=== PATIENT | female | born 1965 | race Caucasian/White ===

== ENCOUNTER → 2018-11-05 13:40 | Outpatient (CLI) | payer OTHER, SELFPAY ==
--- NOTE | 2018-11-05 13:43 | DI.RAD.S_ITS ---
PROCEDURE: XR LUMBAR SPINE 2-3V INDICATIONS: left SI joint pain TECHNIQUE: 3 views of the lumbar spine were acquired. COMPARISON: [facility], CT, ABD/PELVIS W/CON (PNL), 09/09/2011, 9:58. MR, LUMBAR SPINE W/O CONTRAST, 09/22/2014, 7:40. [facility] [place], CR, SPINE LUMB 6+VW, 11/30/2015, 9:21. FINDINGS: Bones: 5 dlr-hvf-devqtih vertebrae are present. There is grade 1 anterolisthesis of L4 on L5, trace retrolisthesis of L1 on L2-L2 on L3, L3 on L4. Moderate to severe disc space narrowing is present at L4-5, L5-S1. Severe foraminal narrowing is present at L5-S1. No vertebral body compression fractures. No suspicious bony lesions. SI joints are narrowed bilaterally. Soft tissues: Overlying bowel gas pattern is normal. No suspicious soft tissue calcifications. IMPRESSION: Degenerative changes most notable at L5-S1. Grade one anterolisthesis of L4 on L5. Dictated by: Francia Solano M.D. on 11/05/2018 at 16:17 Approved by: Francia Solano M.D. on 11/05/2018 at 16:21
--- NOTE | 2018-11-05 13:43 | DI.RAD.S_ITS ---
PROCEDURE: XR PELVIS 1-2V INDICATIONS: left SI joint pain TECHNIQUE: Single view(s) of the pelvis acquired. COMPARISON: None. FINDINGS: Bones: No fractures or dislocations. No suspicious bony lesions. Lower lumbar spondylosis. Mild bilateral hip degenerative spurring and sclerosis. Degenerative sclerosis and spurring of sacroiliac joints appears bilaterally symmetric Soft tissues: Visualized bowel gas pattern is normal. No suspicious soft tissue calcifications. IMPRESSION: Scattered degenerative changes as above. Dictated by: Oseas Carter M.D. on 11/05/2018 at 16:44 Approved by: Oseas Carter M.D. on 11/05/2018 at 16:45
== END ==
PROVIDERS: PCP Family Medicine; Visit Provider Registered Nurse
DX: M53.3 Sacrococcygeal disorders, not elsewhere classified (principal); M47.817 Spondylosis without myelopathy or radiculopathy, lumbosacral region; M43.16 Spondylolisthesis, lumbar region
CPT/HCPCS: 72100; 72170

== ENCOUNTER → 2018-11-17 06:20 | Outpatient (CLI) | payer OTHER, SELFPAY ==
--- NOTE | 2018-11-17 06:22 | DI.MRI.S_ITS ---
PROCEDURE: MR LUMBAR SPINE WO CON INDICATIONS: Lumbosacral spondylosis fall from ladder TECHNIQUE: Noncontrast sagittal T1 spin echo and T2 fast echo, sagittal STIR, axial T1 and T2 fast spin echo through the lumbar spine. In cases with scoliosis, additional coronal T2 fast spin echo may be performed. COMPARISON: None. FINDINGS: Image quality: Excellent. Alignment and Curvature: There is grade 1 anterolisthesis of L4 and L5. Bone Marrow: Marrow is of normal overall signal. No acute vertebral body compression fractures. Spinal Cord: Conus medullaris terminates at the L1 to level. Visualized cord demonstrates normal signal and size. Paraspinous Soft Tissues: No paravertebral masses. L1-L2: Normal appearance. L2-L3: Mild diffuse disc bulge and bilateral facet arthrosis is seen. Mild central canal stenosis and mild to moderate right-sided neuroforaminal narrowing is seen. L3-L4: Diffuse disc bulge and bilateral facet arthrosis is noted with mild central canal stenosis and jbds-hj-hiarozaf bilateral neural foramina narrowing. L4-L5: There is suggestion of prior laminectomy at this level with no significant canal stenosis. Decreased intervertebral disc space and degenerative endplate changes are seen. A broad-based disc bulge and bilateral facet arthrosis is noted with moderate to severe bilateral neuroforaminal narrowing more prominent on the left side. There is compression of bilateral L4 nerve roots. L5-S1: There is posterior decompression with no significant canal stenosis or neural foramina narrowing seen. IMPRESSION: #1. Patient is status post laminectomy at L4-5 and L5-S1 levels. No significant canal stenosis is seen. Bilateral neural foramina narrowing at L4-5 level is seen as above. #2. Grade one anterolisthesis of L4 and L5. No marrow edema. No acute compression fracture. #3. Degenerative disc bulge and bilateral facet arthrosis at L2-3 and L3-4 levels causing mild central canal stenosis and bilateral neural foramina narrowing as above. Dictated by: Fer Montes De Oca M.D. on 11/17/2018 at 14:07 Approved by: Fer Montes De Oca M.D. on 11/17/2018 at 14:23
== END ==
PROVIDERS: PCP Family Medicine; Visit Provider Physical Medicine & Rehabilitation
DX: M47.26 Other spondylosis with radiculopathy, lumbar region (principal); M43.16 Spondylolisthesis, lumbar region; M51.16 Intervertebral disc disorders with radiculopathy, lumbar region; M48.061 Spinal stenosis, lumbar region without neurogenic claudication; M53.3 Sacrococcygeal disorders, not elsewhere classified
CPT/HCPCS: 72148

== ENCOUNTER 2018-12-21 07:51 | Outpatient (CLI) | payer OTHER, SELFPAY ==
[2018-12-21] VITALS (8 sets, daily range): BP systolic 130–163; BP diastolic 78–98; PULSE 67–71; RESP 16; TEMP 36.1; O2SAT 95–100
--- NOTE | 2018-12-21 07:54 | DI.RAD.S_ITS ---
PROCEDURE: PAIN SI JOINT INJECTION INDICATIONS: SACROCOCCYGEAL DISORDER FINDINGS: Fluoroscopic spot filming was performed to verify placement of spinal needles at the left sacroiliac joint, as labeled on the films. Appropriate location(s) of the needle tip(s) was confirmed by injection of iodinated contrast. Dictated by: Oseas Carter M.D. on 12/21/2018 at 13:40 Approved by: Oseas Carter M.D. on 12/21/2018 at 13:40
[2018-12-21] MEDS: MIDAZOLAM 5 MG/5 ML VIAL IV (09:39)
[2018-12-21] MEDS: BUPIVACAINE 0.5% (PF) VIAL 2 ML INJ (09:44)
[2018-12-21] MEDS: IOPAMIDOL 15 ML VIAL 3 ML INJ (09:44)
[2018-12-21] MEDS: BETAMETHASONE 30 MG/5 ML MDV 12 MG INJ (09:44)
--- NOTE | 2018-12-21 09:46 | PC.NURSE ---
ASSISTING PT OFF TABLE AND TRANSPORTING TO POST PROC AREA IN STABLE CONDITION
--- NOTE | 2018-12-21 09:51 | P.PCN_ITS ---
Procedures Date/Time Date of procedure: 12/21/18 Time of procedure: 09:50 General Procedure description: PREOP Dx: Sacroiliac joint pain/DJD POST OP DX: Sacroiliac Joint Pain/DJD Procedures: Fluoroscopic guided contrast controlled left sacroiliac joint injection Physician: Arnaud Pike D.O. Indications: Estrella is referred by for treatment of left sacroiliac joint DJD Description of procedure Fluoroscopic guided, contrast controlled left sacroiliac joint injection Following review of allergies and review of potential side effects and complications, including, but not necessarily limited to, infection, allergic reaction, local tissue breakdown, temporary as well as permanent nerve injury, paralysis, stroke and possible , the patient indicated that they understood and agreed to proceed. An informed consent was signed by the patient, witnessed by a nurse, and placed in the patient's chart. Additionally, other treatment options including modalities, medications, and physical therapy were reviewed with the patient. After review of previous anaesthesic history and IV conscious sedation the patient was deemed safe to proceed with todays procedure with IV conscious sedation as ASA class II designation. Safety time-out was performed to confirm patient ID, procedure to be performed and site of procedure. IV sedation was accomplished with a combination of 2mg of Versed administered by the RN after DO order, titrated to patient comfort during the course of the procedure while the patient remained responsive to all verbal commands. In the prone position following sterile prep and drape of the pelvic region, the hyper lucency on in the inferior aspect of the left sacroiliac joint was identified fluoroscopically the skin was anesthetized be a 25 gauge 1 eventual with approximately 2 cc of 1% lidocaine solution. At this point, a 22 gauge 3 in spinal needle was atraumatically introduced and advanced under fluoroscopic guidance into the inferior aspect of the left sacroiliac joint. Following ne gative aspiration, approximately 0.3 cc of Isovue-300 was injected confirming intra-articular placement without vascular uptake. Radiographic data, including multiple fluoroscopic views of the pelvis, reveals a spinal needle in the left sacroiliac joint hyper lucent zone. Subsequent view show flow contrast tear superiorly and inferiorly within the joint capsule without vascular intrathecal uptake. At this point a total of 1cc or 0 8 of 0.5% Marcaine was combined with 1cc of 6mg of betamethasone was injected without incident. The patient tolerated the procedure well without signs or symptoms of complications prior to transfer to the recovery area for further monitoring. The patient was then transferred to the recovery area with a bur observed for an appropriate time after the injection. The patient reverted a vas score of 7 prior to the procedure and postprocedure vas of 1. Total fluoroscopy time: 22.7 sec Total conscious sedation time: 24 min Postop instructions The patient was provided with a pain like to continue to record the patient's response to the target specific procedure prior to the patient's follow-up visit with the referring physician. Additionally, specific post injection care instructions and a contact number to our office were provided if concerns arise regarding the possible complications associated with procedure are suspected. Arnaud Pike D.O. Complications: none
--- NOTE | 2018-12-21 09:52 | PC.NURSE ---
Pt returned from procedure via wheelchair awake and alert, able to transfer self from w/c to chair with standby assist. Resumed monitoring from Jennifer CHOWDARY.
== END 2018-12-21 10:26 ==
LOC: RAD 07:53
PROVIDERS: PCP Family Medicine; Visit Provider Physical Medicine & Rehabilitation
DX: M53.3 Sacrococcygeal disorders, not elsewhere classified (principal); G89.29 Other chronic pain
CPT/HCPCS: 27096; 99152; J0702; J2250; J3010

== ENCOUNTER 2019-03-17 07:44 | Outpatient (CLI) | payer OTHER, SELFPAY ==
[2019-03-17] VITALS (9 sets, daily range): BP systolic 104–153; BP diastolic 58–79; PULSE 62–88; RESP 16–18; TEMP 36.1; O2SAT 94–100
--- NOTE | 2019-03-17 07:45 | DI.RAD.S_ITS ---
PROCEDURE: PAIN L/S TRANSFORAMINAL INJECT INDICATIONS: SPONDYLOSIS FINDINGS: Fluoroscopic spot filming was performed to verify placement of spinal needles at the L4-L5 level(s), as labeled on the films. Appropriate location(s) of the needle tip(s) was confirmed by injection of iodinated contrast. IMPRESSION: Fluoroscopy for pain management. Dictated by: Gopi Cuello M.D. on 03/17/2019 at 10:46 Approved by: Gopi Cuello M.D. on 03/17/2019 at 10:46
[2019-03-17] MEDS: MIDAZOLAM 5 MG/5 ML VIAL IV (09:09)
[2019-03-17] MEDS: IOPAMIDOL 15 ML VIAL 3 ML INJ (09:16)
[2019-03-17] MEDS: DEXAMETHASONE 10 MG/ML VIAL 20 MG INJ (09:17)
[2019-03-17] MEDS: BETAMETHASONE 30 MG/5 ML MDV 6 MG INJ (09:17)
[2019-03-17] MEDS: BUPIVACAINE 0.25% (PF) VIAL 2 ML INJ (09:17)
--- NOTE | 2019-03-17 09:22 | PC.NURSE ---
ASSISTING PT OFF TABLE AND TRANSPORTING TO POST PROC AREA IN STABLE CONDITION.
--- NOTE | 2019-03-17 09:26 | P.PCN_ITS ---
Procedures Date/Time Date of procedure: 03/17/19 Time of procedure: 09:26 General Procedure description: PREOP DIAGNOSIS 1. FORMAINAL STENOSIS WITH LE SYMPTOMS POST OP DIAGNOSIS 1. FORMAINAL STENOSIS WITH LE SYMPTOMS PROCEDURES 1. FLUOROSCOPICALLY GUIDED CONTRAST CONTROLLED TRANSFORAMINAL EPIDURAL STEROID INJECTION - LEFT L4/5 PHYSICIAN: Arnaud Pike DO INDICATIONS: Estrella is referred by for treatment of Foraminal Stenosis with Left LE Symptoms FINDINGS Foraminal Nerve Root Compression secondary to disc disease and facet hypertrophy DESCRIPTION OF PROCEDURE: Following review of allergy and review of potential side effects and complications, including, but not necessarily limited to, infection, allergic reaction, local tissue breakdown, stroke, temporary or permanent nerve injury, paralysis, and possible , the patient indicated that the patient understood and agreed to proceed. An informed consent document was signed by the patient, witnessed by a nurse, and placed in the patient's chart. Additionally, other treatment options including medications, modalities, and physical therapy were reviewed with the patient. After review of previous anaesthesic history and IV conscious sedation the beth ent was deemed safe to proceed with todays procedure with IV conscious sedation as ASA class II designation. Safety time-out was performed to confirm patient ID, procedure to be performed and site of procedure. IV sedation was accomplished with a combination of 2mg of Versed administered by the RN after DO order, titrated to patient comfort during the course of the procedure while the patient remained responsive to all verbal commands In the prone position following sterile prep and drape of the lumbar region, the left L4/5 posterior neuroforamen was identified fluoroscopically. The skin was anesthetized via a 25-gauge 1.5-inch needle with 1% lidocaine solution. At this point, a 25-gauge 3.5-inch spinal needle was atraumatically introduced and advanced under fluoroscopic guidance through the posterior left L4/5 neuroforamen to approximately the anterior aspect of the canal. Depth was confirmed on lateral view. Following negative aspiration, injection of approximately 1.5 cc of Isovue 200 under live fluoroscopy in the AP view confirmed excellent flow along the nerve root, into the epidural space without vascular or intrathecal uptake observed Radiological data, including multiple fluoroscopic views of the lumbosacral spine, reveal a spinal needle at the left L4/5 posterior neuroforamen. Subsequent views show flow of contrast material flowing superiorly and inferiorly along the nerve root confirming epidural flow. Subsequently, a test dose of 1.5 cc of 1% lidocaine solution was administered and patient was observed for two minutes for signs or symptoms of complications, including abdominal pain, shortness of breath, bilateral upper or lower extremity weakness, nausea and vomiting, prior to steroid injection. At this point, a total of 3cc or 20mg of dexamethasone and 6mg of betamethasone was injected without incident. The procedure tolerated the procedure well without signs or symptoms of complications prior to transfer to the recovery area continued monitoring without incident. The patient was then transferred to the recovery area where they were observed for an appropriate time after the injection. The patient reported a VAS score of 7 prior to the procedure and a post- procedure VAS of 0. Total Fluoroscopy Time: 20.9 seconds Total Conscious Sedation Time: 24min POST OP INSTRUCTIONS The patient was provided a Pain Log to continue to record their response to the target-specific procedure prior to follow-up visit with their referring physician. Additionally, specific post-injection care instructions and a contact number to our office were provided if concerns arise regarding possible complications associated with the procedure are suspected. Arnaud Pike DO Complications: none
== END 2019-03-17 10:00 | disposition home or self-care (01) ==
PROVIDERS: PCP Family Medicine; Visit Provider Physical Medicine & Rehabilitation
DX: M48.061 Spinal stenosis, lumbar region without neurogenic claudication (principal); M51.16 Intervertebral disc disorders with radiculopathy, lumbar region
CPT/HCPCS: 64483; 99152; J0702; J1100; J2250; J3010

== ENCOUNTER → 2025-01-31 11:59 | Outpatient (CLI) | payer OTHER, SELFPAY ==
--- NOTE | 2025-01-31 12:15 | DI.RAD.S_ITS ---
PROCEDURE: XR LUMBAR SPINE MIN 4V INDICATIONS: BACK PAIN TECHNIQUE: 5 views of the lumbar spine were acquired, including bilateral oblique views. COMPARISON: [facility], CR, XR LUMBAR SPINE 2-3V, 11/05/2018, 13:45. FINDINGS: Bones: 5 nonrib-bearing vertebrae are present. There is 9 mm anterolisthesis of L4 on L5. 2 mm retrolisthesis of L2 on L3 and L3 on L4 is seen. Degenerative endplate changes and bilateral facet arthrosis throughout lumbar spine with significant loss of disc height at L4-5 and L5-S1 levels. No vertebral body compression fractures. No suspicious bony lesions. Soft tissues: Overlying bowel gas pattern is normal. No suspicious soft tissue calcifications. Oblique images: No pars defects. Significant bilateral bony foraminal stenosis at L3-4 through L5-S1 levels are seen. IMPRESSION: Spondylolisthesis throughout lumbar spine as described above. Xgmv-wy-gjsazyws spondylitic changes throughout lumbar spine more notably at L4-5 and L5-S1 levels. No gross pars defect seen on oblique views. Suggestion of moderate to severe bilateral neural foraminal narrowing at L3-4 through L5-S1 levels. Dictated by: Fer Montes De Oca M.D. on 01/31/2025 at 13:14 Approved by: Fer Montes De Oca M.D. on 01/31/2025 at 13:17
== END ==
PROVIDERS: PCP Family Medicine; Referring Provider Physical Medicine & Rehabilitation; Visit Provider Physical Medicine & Rehabilitation
DX: M47.817 Spondylosis without myelopathy or radiculopathy, lumbosacral region (principal); M47.816 Spondylosis without myelopathy or radiculopathy, lumbar region; M48.061 Spinal stenosis, lumbar region without neurogenic claudication; M48.07 Spinal stenosis, lumbosacral region; M43.16 Spondylolisthesis, lumbar region
CPT/HCPCS: 72110

== ENCOUNTER 2025-02-21 08:05 | Outpatient (CLI) | payer OTHER, SELFPAY ==
[2025-02-21] VITALS (9 sets, daily range): BP systolic 127–180; BP diastolic 73–89; PULSE 68–79; RESP 12–20; TEMP 37.1; O2SAT 94–98
[2025-02-21] MEDS: MIDAZOLAM 2 MG/2 ML VIAL IV (09:29)
[2025-02-21] MEDS: BETAMETHASONE 30 MG/5 ML MDV 12 MG IM (09:36)
--- NOTE | 2025-02-21 09:45 | P.PCN_ITS ---
Date/Time/Diagnoses Date of procedure: 02/21/25 Time of procedure: 09:45 Pre-procedure diagnosis: 1. FORAMINAL STENOSIS WITH LE SYMPTOMS Post-procedure diagnosis: same Procedure Notes Procedure: 1. FLUOROSCOPICALLY GUIDED CONTRAST CONTROLLED TRANSFORAMINAL EPIDURAL STEROID INJECTION - LEFT L4/5 Indications: Estrella is referred for treatment of Foraminal Stenosis with Left LE Symptoms Physician: Arnaud Pike Total Fluoroscopy time (seconds): 8 Total sedation minutes: 11 Complications: none Procedure in detail & Post-procedure care: FINDINGS Foraminal Nerve Root Compression secondary to disc disease and facet hypertrophy DESCRIPTION OF PROCEDURE Following review of allergy and review of potential side effects and complications, including, but not necessarily limited to, infection, allergic reaction, local tissue breakdown, stroke, temporary or permanent nerve injury, paralysis, and possible , the patient indicated that the patient understood and agreed to proceed. An informed consent document was signed by the patient, witnessed by a nurse, and placed in the patient's chart. Additionally, other treatment options including medications, modalities, and physical therapy were reviewed with the patient. After review of previous anaesthesic history and IV conscious sedation the patient was deemed safe to proceed with today?s procedure with IV conscious sedation as ASA class II designation. Safety time-out was performed to confirm patient ID, procedure to be performed and site of procedure. IV sedation was accomplished with a combination of 2mg of Versed administered by the RN after DO order, titrated to patient comfort during the course of the procedure while the patient remained responsive to all verbal commands In the prone position following sterile prep and drape of the lumbar region, the left L4/5 posterior neuroforamen was identified fluoroscopically. The skin was anesthetized via a 25-gauge 1.5-inch needle with 1% lidocaine solution. At this point, a 25-gauge 3.5-inch spinal needle was atraumatically introduced and advanced under fluoroscopic guidance through the posterior left L4/5 neuroforamen to approximately the anterior aspect of the canal. Depth was confirmed on lateral view. Following negative aspiration, injection of approximately 1.5 cc of Isovue 200 under live fluoroscopy in the AP view confirmed excellent flow along the nerve root, into the epidural space without vascular or intrathecal uptake observed Radiological data, including multiple fluoroscopic views of the lumbosacral spine, reveal a spinal needle at the left L4/5 posterior neuroforamen. Subsequent views show flow of contrast material flowing superiorly and inferiorly along the nerve root confirming epidural flow. Subsequently, a test dose of 1.5cc of 0.25% marcaine solution was administered and patient was observed for two minutes for signs or symptoms of complications, including abdominal pain, shortness of breath, bilateral upper or lower extremity weakness, nausea and vomiting, prior to steroid injection. At this point, a total of 3cc or 10mg of dexamethasone and 12mg of betamethasone was injected without incident. The procedure tolerated the procedure well without signs or symptoms of complications prior to transfer to the recovery area continued monitoring without incident. The patient was then transferred to the recovery area where they were observed for an appropriate time after the injection. The patient reported a VAS score of 7 prior to the procedure and a post- procedure VAS of 0. POST OP INSTRUCTIONS The patient was provided a Pain Log to continue to record their response to the target-specific procedure prior to follow-up visit with their referring physician. Additionally, specific post-injection care instructions and a contact number to our office were provided if concerns arise regarding possible complications associated with the procedure are suspected.
== END 2025-02-21 10:04 | disposition home or self-care (01) ==
LOC: RAD 08:06
PROVIDERS: Referring Provider Physical Medicine & Rehabilitation; Visit Provider Physical Medicine & Rehabilitation
DX: M48.061 Spinal stenosis, lumbar region without neurogenic claudication (principal); M51.16 Intervertebral disc disorders with radiculopathy, lumbar region; M47.26 Other spondylosis with radiculopathy, lumbar region
CPT/HCPCS: 64483; 99152; J0702; J1100; J2250